=== PATIENT | female | born 1940 | race African-American/Black ===

== ENCOUNTER → 2018-09-16 | Outpatient (CLI) | payer BC ==
[2014-03-23 15:00] VITALS: BP 142/63
[~2018-09-16] MED LIST: AMLO5TAB7 PO; LOSA100T7 PO; LOVA20TA2 PO; METO-239 PO
--- NOTE | 2018-09-16 13:26 | RAD ---
DATE: 09/16/2018 EXAM: MAMMO OCHOA SCREENING BILATERAL HISTORY: Routine screening COMPARISON: 02/01/2014 and 04/18/2016 screen mammographic exams This study was interpreted with the benefit of Computerized Aided Detection (CAD). Breast Density: SCATTERED The breast parenchyma shows scattered fibroglandular densities. Breast parenchyma level B. FINDINGS: Benign calcifications are present. No suspicious calcification clusters or distortion. At the left outer breast on Telesis imaging, there is a 0.8 cm diameter ovoid structure nipple best seen on the CC images. This finding is not well delineated on the standard 2-D image provided. IMPRESSION: Left outer breast asymmetry. Spot compression with tomosynthesis imaging of the left outer CC is recommended. Ultrasound may be needed. Annual right screening mammography recommended. BI-RADS CATEGORY: 0 INCOMPLETE: NEEDS ADDITIONAL IMAGING EVALUATION AND/OR PRIOR MAMMOGRAMS FOR COMPARISON. RECOMMENDED FOLLOW-UP: ADD ADDITIONAL IMAGING PQRS compliance statement: Patient information was entered into a reminder system with a target due date in 1 year for the next mammogram. Mammography is a sensitive method for finding small breast cancers, but it does not detect them all and is not a substitute for careful clinical examination. A negative mammogram does not negate a clinically suspicious finding and should not result in delay in biopsying a clinically suspicious abnormality. "Our facility is accredited by the [employer]ammography [employer]."
== END | disposition home or self-care (01) ==
LOC: MAMMO 08:26
PROVIDERS: ATTEND Family Medicine
DX: Z12.31 Encounter for screening mammogram for malignant neoplasm of breast (principal)
CPT/HCPCS: 77063; 77067

== ENCOUNTER → 2018-09-23 | Outpatient (CLI) | payer BC ==
[2014-03-23 15:00] VITALS: BP 142/63
--- NOTE | 2018-09-23 15:47 | RAD ---
DATE: 09/23/2018 EXAM: DIGITAL DIAGNOSTIC LT, BREAST LEFT HISTORY: Abnormal screen mammographic finding on 09/16/2018 COMPARISON: 02/01/2014, 04/18/2016, at 09/16/2018 mammographic exams This study was interpreted with the benefit of Computerized Aided Detection (CAD). Breast Density: SCATTERED The breast parenchyma shows scattered fibroglandular densities. Breast parenchyma level B. FINDINGS: Left mediolateral view was obtained. Spot compression images (a total of 2) of the outer left breast in the CC projection was performed. Persistence of an asymmetry of the outer aspect of the left breast is evident. Ultrasound imaging of the left outer breast was performed from 1:00 to 5:00. There is a 0.4 cm x 0.3 cm x 0.2 cm: Well demarcated intermediate echogenicity structure 4 cm from the nipple at the 2:30 position. No flow evident within. This finding appears to all communicate with the mildly dilated left subareolar ductal system. Subareolar ductal ectasia is identified. No suspicious palpable finding on physical exam by myself about the 3:00 region. IMPRESSION: Probably benign left outer breast finding. Six-month follow-up left unilateral diagnostic mammogram and ultrasound recommended. BI-RADS CATEGORY: 3 PROBABLY BENIGN FINDING(S)-SHORT INTERVAL FOLLOW-UP SUGGESTED RECOMMENDED FOLLOW-UP: 6M 6 MONTH FOLLOW-UP PQRS compliance statement: Patient information was entered into a reminder system with a target due date in 6 months for the next mammogram. Mammography is a sensitive method for finding small breast cancers, but it does not detect them all and is not a substitute for careful clinical examination. A negative mammogram does not negate a clinically suspicious finding and should not result in delay in biopsying a clinically suspicious abnormality. "Our facility is accredited by the [employer]amm[employer]."
== END | disposition home or self-care (01) ==
LOC: MAMMO 09:40
PROVIDERS: ATTEND Family Medicine
DX: R92.8 Other abnormal and inconclusive findings on diagnostic imaging of breast (principal)
CPT/HCPCS: 76641; 77065

== ENCOUNTER → 2019-04-06 | Outpatient (CLI) | payer BC ==
[2014-03-23 15:00] VITALS: BP 142/63
[~2019-04-06] MED LIST changes: +AMLO5TAB10 PO; -AMLO5TAB7 PO; +LOSA100T14 PO; -LOSA100T7 PO
--- NOTE | 2019-04-06 15:33 | RAD ---
DATE: 04/06/2019. EXAM: DIGITAL DIAGNOSTIC LT, ULTRASOUND BREAST LEFT. HISTORY: Six-month follow-up left breast lesion. COMPARISON: 09/23/2018. FINDINGS: Breast Density: SCATTERED The breast parenchyma shows scattered fibroglandular densities. Breast parenchyma level B.. The nodule of prior concern persists as best seen on the spot compression CC view. It is just lateral to the nipple line and is partially circumscribed and partially secured. It measures 5 mm mammographically which is unchanged. Scattered calcifications elsewhere are unchanged. Sonography of the lateral left breast was also performed at the site of prior concern. The small nodule previously noted at the 2:30 position 4 cm from the nipple is no longer identified. Prominent ducts are again noted in the retroareolar region without a clear intraductal mass. There is no suspicious sonographic finding. BI-RADS CATEGORY: 3 PROBABLY BENIGN FINDING(S)-SHORT INTERVAL FOLLOW-UP SUGGESTED. RECOMMENDED FOLLOW-UP: 6M 6 MONTH FOLLOW-UP. 1. The mammographic nodule appears benign and can be reassessed for one year stability when the patient returns for her bilateral examination in 6 months. PQRS compliance statement: Patient information was entered into a reminder system with a target due date 10/06/2019 for the next mammogram. Mammography is a sensitive method for finding small breast cancers, but it does not detect them all and is not a substitute for careful clinical examination. A negative mammogram does not negate a clinically suspicious finding and should not result in delay in biopsying a clinically suspicious abnormality. "Our facility is accredited by the [employer]ammography [employer]."
== END | disposition home or self-care (01) ==
LOC: MAMMO 10:13
PROVIDERS: ATTEND Family Medicine
DX: N63.21 Unspecified lump in the left breast, upper outer quadrant (principal); R92.1 Mammographic calcification found on diagnostic imaging of breast
CPT/HCPCS: 76641; 77065

== ENCOUNTER → 2019-10-08 | Outpatient (CLI) | payer BC ==
[2014-03-23 15:00] VITALS: BP 142/63
--- NOTE | 2019-10-08 12:58 | RAD ---
DATE: October 08, 2019 EXAM: MAMMO OCHOA TERESE BILAT HISTORY: Follow-up of left breast nodule seen just lateral to the nipple in the CC projection. COMPARISON: September 16, 2018 This study was interpreted with the benefit of Computerized Aided Detection (CAD). 2-D digital mammographic views of both breasts were performed in the CC and MLO projections. 3-D digital tomosynthesis images of both breasts were performed in the CC and MLO projections and reviewed on a computer workstation. FINDINGS: Breast Density: SCATTERED The breast parenchyma shows scattered fibroglandular densities. Breast parenchyma level B.. Again seen is a nodule just lateral to the nipple line in the CC projection of the left breast which is stable. There is a central nodule of the right breast straight back from the nipple in the CC projection which is stable. No newly developing asymmetric breast mass or spiculated lesion or clustering of microcalcifications are seen to indicate malignancy mammographically. IMPRESSION: Stable mammogram. There are no mammographic indicators for malignancy. BI-RADS CATEGORY: 2 BENIGN FINDING RECOMMENDED FOLLOW-UP: 12M 12 MONTH FOLLOW-UP PQRS compliance statement: Patient information was entered into a reminder system with a target due date October 09, 2020 for the next mammogram. Mammography is a sensitive method for finding small breast cancers, but it does not detect them all and is not a substitute for careful clinical examination. A negative mammogram does not negate a clinically suspicious finding and should not result in delay in biopsying a clinically suspicious abnormality. "Our facility is accredited by the [employer]amm[employer]." The patient's breast density may affect the ability of mammography to detect breast cancer. There are 4 categories of breast density, A, B, C and D. Breast density A means that most of the breast tissue is replaced with adipose tissue and therefore is not dense. Breast density B means that the breast tissue is mildly dense and scattered. Breast density C means that the breast tissue is heterogeneously dense. Breast density D means that the breast tissue is very dense. Breast densities especially C and D may decrease the sensitivity of mammography to detect breast cancer. Therefore, the patient may benefit from 3-D breast mammography (3D breast tomography) as a part of their screening mammogram. Insurance may or may not pay for this additional imaging. The patient's breast density based on today's mammogram is category B.
== END | disposition home or self-care (01) ==
LOC: MAMMO 12:22
PROVIDERS: ATTEND Family Medicine
DX: R92.8 Other abnormal and inconclusive findings on diagnostic imaging of breast (principal); N63.42 Unspecified lump in left breast, subareolar; N63.41 Unspecified lump in right breast, subareolar
CPT/HCPCS: 77066; G0279; 77062

== ENCOUNTER → 2020-12-13 | Outpatient (CLI) | payer BC ==
[2014-03-23 15:00] VITALS: BP 142/63
[~2020-12-13] MED LIST changes: +AMLO-186 PO; -AMLO5TAB10 PO
--- NOTE | 2020-12-14 19:22 | RAD ---
DATE: 12/13/2020 EXAM: MAMMO OCHOA SCREENING BILATERAL HISTORY: Screening COMPARISON: 10/08/2019, 01/21/2019, 09/16/2018 This study was interpreted with the benefit of Computerized Aided Detection (CAD). Breast Density: SCATTERED The breast parenchyma shows scattered fibroglandular densities. Breast parenchyma level B. FINDINGS: There is an area of architectural distortion in the medial right breast seen on CC tomosnythesis on slice 43. No architectural distortion in the left breast. No suspicious mass or calcification in either breast. IMPRESSION: Architectural distortion in the medial right breast on CC tomosynthesis view. Recommend spot compression CC and possible ultrasound to further evaluate. BI-RADS CATEGORY: 0 INCOMPLETE: NEEDS ADDITIONAL IMAGING EVALUATION AND/OR PRIOR MAMMOGRAMS FOR COMPARISON. RECOMMENDED FOLLOW-UP: ADD ADDITIONAL IMAGING PQRS compliance statement: Patient information was entered into a reminder system with a target due date for the next mammogram. Mammography is a sensitive method for finding small breast cancers, but it does not detect them all and is not a substitute for careful clinical examination. A negative mammogram does not negate a clinically suspicious finding and should not result in delay in biopsying a clinically suspicious abnormality. "Our facility is accredited by the [employer] Mammography [employer]."
== END ==
LOC: MAMMO 10:00
PROVIDERS: ATTEND Family Medicine
DX: Z12.31 Encounter for screening mammogram for malignant neoplasm of breast (principal); N64.89 Other specified disorders of breast
CPT/HCPCS: 77063; 77067

== ENCOUNTER → 2020-12-22 | Outpatient (CLI) | payer BC ==
[2014-03-23 15:00] VITALS: BP 142/63
--- NOTE | 2020-12-22 17:34 | RAD ---
Examination: 1. Right digital diagnostic mammogram. 2. Limited right breast ultrasound. INDICATION: 80-year-old woman recalled from screening for architectural distortion in the medial righ t breast best seen on tomography. COMPARISON: 12/13/2020, 10/08/2019 mammograms. TECHNIQUE: Spot compression cc views of the right breast the full field right ML view were obtained w ith 2-D technique and targeted ultrasound of the right breast focused in the upper inner quadrant was performed. FINDINGS: Heterogeneously dense breast parenchyma. Additional views of the right breast showed a changing configuration of the questioned architectural distortion in a pattern suggesting possible overlap of fibroglandular tissue. The questioned distorti on could not be reliably reproduced. Targeted ultrasound of the right breast focused on the upper inner quadrant revealed no suspicious so nographic findings. Incidental 8 mm cyst in the subareolar right breast was noted at the 12:00 positi on 1 cm from the nipple. No right axillary adenopathy. IMPRESSION: Probably benign findings in the right breast. BI-RADS Category 3 Probably benign Recommend 6 month follow-up right digital diagnostic mammogram with possible ultrasound. Electronically signed by: Sylvester Esparza MD (12/22/2020 5:32 PM) [id number]
== END ==
LOC: MAMMO 15:00
PROVIDERS: ATTEND Family Medicine
DX: N60.01 Solitary cyst of right breast (principal)
CPT/HCPCS: 76641; 77065

== ENCOUNTER → 2021-06-13 | Outpatient (CLI) | payer BC ==
[2014-03-23 15:00] VITALS: BP 142/63
--- NOTE | 2021-06-13 10:25 | RAD ---
EXAM: 1. Unilateral digital diagnostic mammography, right. 2. Right breast ultrasound. HISTORY: Six-month follow-up right breast architectural distortion. TECHNIQUE: Bilateral full field digital images were obtained in CC and MLO projections. Computer-aide d detection was applied. COMPARISON: 09/16/2018, 10/08/2019, 12/13/2020, 12/22/2020. COMPOSITION: B. There are scattered areas of fibroglandular density. FINDINGS: A circumscribed/obscured mass in the right subareolar region corresponds with an oval hypoe choic mass at the sonographic 12:00 position 1 cm from the nipple. This measures 12 x 10 x 6 mm and i s consistent with a fibroadenoma. This appears stable and benign sonographically and mammographically . The focus of suggested architectural distortion at the right 3:00 position is less conspicuous than o n the prior study. There is no sonographic correlate. It has mammographic correlates on remote studie s and is likely benign. Coarse calcifications are stable. The parenchymal pattern is stable. BI-RADS CATEGORY 2: Benign. RECOMMENDATION: 1. Resume bilateral screening mammography in 6 months. Electronically signed by: Angela Esquivel MD (06/13/2021 10:22 AM) [id number]
== END ==
LOC: MAMMO 09:08
PROVIDERS: ATTEND Family Medicine
DX: Z09 Encounter for follow-up examination after completed treatment for conditions other than malignant neoplasm (principal); R92.1 Mammographic calcification found on diagnostic imaging of breast; N63.41 Unspecified lump in right breast, subareolar
CPT/HCPCS: 76641; 77065; G0279; 77061

== ENCOUNTER → 2021-12-25 | Outpatient (CLI) | payer BC ==
[2014-03-23 15:00] VITALS: BP 142/63
--- NOTE | 2021-12-26 13:00 | RAD ---
EXAMINATION: MG BILAT SCREEN+OCHOA CLINICAL HISTORY: Screening mammogram TECHNIQUE: Digital craniocaudal and mediolateral oblique views of the bilateral breasts obtained with 3-D tomosynthesis. COMPARISON: 06/13/2021, 12/22/2020, 12/13/2020, 10/08/2019, 09/16/2018 BREAST COMPOSITION: There are scattered areas of fibroglandular density. FINDINGS: No evidence of suspicious mass, calcifications, or areas of architectural distortion. IMPRESSION: No mammographic evidence of malignancy. BI-RADS ASSESSMENT: Category 1: Negative RECOMMENDATION: Return for routine bilateral screening mammogram in one year. PQRS compliance statement - Patient information was entered into a reminder system with a target due date for the next mammogram. "Our facility is accredited by the [employer]ammography [employer]." Electronically signed by: Ranjeet Lopez DO (12/26/2021 12:58 PM) [id number]
== END ==
LOC: MAMMO 14:01
PROVIDERS: ATTEND Family Medicine
DX: Z12.31 Encounter for screening mammogram for malignant neoplasm of breast (principal)
CPT/HCPCS: 77063; 77067